=== PATIENT | male | born 1960 | race Caucasian/White ===

== ENCOUNTER 2016-04-22 16:17 | Emergency (ER) | payer OTHER ==
[2016-04-22] MEDS ORDERED: HYDROcodone 7.5MG/APAP 325MG 1 EA TAB PO ONE (16:51)
--- NOTE | 2016-04-22 16:54 | ED.PDOC ---
History of Present Illness - General Chief Complaint: Upper Extremity Injury Time Seen by Provider: 04/22/16 16:51 Source: patient Exam Limitations: no limitations - History of Present Illness Initial Comments: the patient is a 55-year-old male that The distal aspect of the third and fourth digits of the left hand caught in a folding table and our 2 prior to arrival. He has some difficulty with extension of the distal interphalangeal joint of the fourth digit. Sensation is slightly decreased on both digits at the very tips. He does have subungual hematomas to both digits. No obvious deformity other than swelling other than as stated above. Flexion appears to be preserved. No other injuries. Occurred: just prior to arrival Pain - Upper Extremity: moderate: Hand, left Method of Injury: other Improving Factors: immobilization Worsening Factors: movement Allergies/Adverse Reactions: Allergies NO KNOWN ALLERGY Allergy (Unverified 05/24/14 07:14) Home Medications: Ambulatory Orders Sdflplslhcnro-Fcqe-Mjerfphqbr [Fioricet] 1 ea PO Q8H PRN #21 tab 04/22/16 Review of Systems - Review of Systems Constitutional: States: no symptoms reported EENTM: States: no symptoms reported Respiratory: States: no symptoms reported Cardiology: States: no symptoms reported Gastrointestinal/Abdominal: States: no symptoms reported Genitourinary: States: no symptoms reported Musculoskeletal: States: see HPI Skin: States: see HPI Neurological: States: no symptoms reported All other Systems: No Change from Baseline Past Medical History (General) - Patient Medical History Hx Congestive Heart Failure: No Hx Diabetes: No Physical Exam - Physical Exam General Appearance: Alert, Comfortable, No apparent distress Eyes, Ears, Nose, Throat Exam: PERRL/EOMI Neck: full range of motion Cardiovascular/Respiratory: normal peripheral pulses, no respiratory distress Shoulder Exam: normal inspection, non-tender, no evidence of injury, normal ROM Elbow/Forearm Exam: normal inspection, non-tender, no evidence of injury, normal ROM Wrist Exam: normal inspection, non-tender, no evidence of injury, normal ROM Hand Exam: swelling - see history of present illness Neuro/Tendon: normal sensation, responds to pain Mental Status: alert, oriented x 3 Progress - Progress Progress: 04/22/16 16:54 the patient is a 55-year-old male presenting with crush injuries to the distal aspects of the third and fourth digits of the left hand. He should expect to lose the fingernails over the coming weeks. He was given a finger splint to allow for continued extension of the distal interphalangeal joint of the fourth digit. He does need follow-up with orthopedics in 7-14 days for reevaluation of that digit. I do not see any oanh fracture on the x-ray today however a repeat x-ray may yield a fracture around that joint. The patient was given a dose of hydrocodone for pain control and will be written for Fioricet for outpatient pain control. He can also use Advil or Aleve for pain control as an outpatient. He does need follow-up with his primary care doctor as well the coming weeks. ER warnings are given for any acute worsening. No evidence of any open fracture in this patient. - Results/Orders Results/Orders: x-ray of the left hand shows possible hairline fracture the distal aspect of the fourth finger. I see no other evidence of fractures. Final read is pending at this time. No other evidence of dislocation. Departure - Departure Clinical Impression: Crushed finger Qualifiers: Encounter type: initial encounter Qualifier Code: (S67.10XA) Crushing injury of unspecified finger(s), initial encounter Disposition: Discharge to Home or Self Care Condition: Fair Departure Forms: ED Discharge - Pt. Copy, Patient Portal Self Enrollment Instructions: Finger Extensor Tendon Injury Diet: regular diet Activity: no pushing/pulling with affected limb Referrals: Getachew Lucas III, MD [Primary Care Provider] - 1-2 Weeks Prescriptions: Lfnsdpkfmdyfd-Fohu-Tdxxjgilll [Fioricet] 1 ea PO Q8H PRN #21 tab PRN Reason: Pain Home Medications: Ambulatory Orders Ciooysvutojyg-Vyaf-Ylvksqacbo [Fioricet] 1 ea PO Q8H PRN #21 tab 04/22/16 Additional Instructions: the patient is a 55-year-old male presenting with crush injuries to the distal aspects of the third and fourth digits of the left hand. He should expect to lose the fingernails over the coming weeks. he is having difficulty with extension of the distal interphalangeal joint of the fourth digit. He was given a finger splint to allow for continued extension of the distal interphalangeal joint of the fourth digit. He does need follow-up with orthopedics in 7-14 days for reevaluation of that digit. I do not see any oanh fracture on the x-ray today however a repeat x-ray may yield a fracture around that joint. The patient was given a dose of hydrocodone for pain control and will be written for Fioricet for outpatient pain control. He can also use Advil or Aleve for pain control as an outpatient. He does need follow- up with his primary care doctor as well the coming weeks. ER warnings are given for any acute worsening. No evidence of any open fracture in this patient.
--- NOTE | 2016-04-22 17:00 | RAD ---
EXAM DESCRIPTION: Hand,Left 3 Views CLINICAL HISTORY: smashed with a hand saw COMPARISON: None FINDINGS: AP, lateral and oblique views of the left hand were submitted. There is no discrete acute fracture or dislocation. Bone mineralization is within normal limits. There is no radiopaque foreign body material IMPRESSION: No acute fracture or dislocation Electronically signed by: Thai Hoffman MD 04/22/2016 4:59 PM [facility] [facility]
[2016-04-22 17:17] VITALS: BP 115/71; TEMP 97.8; O2SAT 98
== END 2016-04-22 17:30 | disposition home or self-care (01) ==
LOC: ER 16:17
DX: S67.198A Crushing injury of other finger, initial encounter (principal); W23.0XXA Caught, crushed, jammed, or pinched between moving objects, initial encounter

== ENCOUNTER → 2016-12-24 | Outpatient (CLI) | payer OTHER | END | disposition home or self-care (01) | LOC: GMAL 11:08 | PROVIDERS: ATTEND Family Medicine | DX: D50.8 Other iron deficiency anemias (principal) ==

== ENCOUNTER → 2017-09-23 | Outpatient (CLI) | payer OTHER | LOC: GMAL 11:38 | PROVIDERS: ATTEND Family Medicine | DX: D51.3 Other dietary vitamin B12 deficiency anemia (principal); E55.9 Vitamin D deficiency, unspecified; Z12.5 Encounter for screening for malignant neoplasm of prostate ==

== ENCOUNTER → 2017-11-08 | Outpatient (CLI) | payer OTHER ==
--- NOTE | 2017-11-08 09:16 | US ---
EXAM DESCRIPTION: Abdominal sonogram limited to the right upper quadrant CLINICAL HISTORY: ELEVATED LFT'S COMPARISON: None Available. TECHNIQUE: Right upper quadrant ultrasound FINDINGS: Pancreas: Visualized portions of the pancreas are unremarkable. Bowel gas obscures some areas. Aorta/inferior vena cava: No aortic aneurysm. Normal inferior vena cava. Liver: The liver is homogeneous in texture with normal to minimally increased echogenicity. No focal liver lesion or intrahepatic bile duct dilatation. No liver surface irregularity. Normal appearance of the portal vein and hepatic veins. Liver length of 13.8 cm is within normal limits. Gallbladder: Gallbladder appears normal with no intraluminal stones or wall thickening. Common bile duct: Normal caliber measuring 3.7 mm. Right kidney: Renal length is 10.5 cm. Normal cortical echogenicity. Cortical thickness is normal. No hydronephrosis is seen. No renal mass or shadowing calculus. IMPRESSION: No diagnostic abnormality is identified on sonographic examination of the right upper quadrant. Electronically signed by: Shahbaz Forte MD 11/08/2017 9:14 AM CDT
== END ==
LOC: US 07:42
PROVIDERS: ATTEND Family Medicine
DX: R94.5 Abnormal results of liver function studies (principal)

== ENCOUNTER → 2018-11-07 | Outpatient (CLI) | payer OTHER | LOC: GMAL 10:24 | PROVIDERS: ATTEND Family Medicine | DX: Z00.01 Encounter for general adult medical examination with abnormal findings (principal) ==

== ENCOUNTER → 2018-11-27 | Outpatient (CLI) | payer OTHER | LOC: GMAL 10:25 | PROVIDERS: ATTEND Family Medicine | DX: D50.8 Other iron deficiency anemias (principal) ==

== ENCOUNTER → 2019-11-24 | Outpatient (CLI) | payer OTHER | LOC: GMAL 16:51 | PROVIDERS: ATTEND Family Medicine | DX: R79.89 Other specified abnormal findings of blood chemistry (principal) ==